=== PATIENT | female | born 1945 | race Caucasian/White ===

== ENCOUNTER → 2018-08-30 13:39 | Outpatient (CLI) | payer MEDICARE, OTHER, SELFPAY ==
--- NOTE | 2018-08-30 | DI.MG.S_ITS ---
UNILATERAL RIGHT DIGITAL DIAGNOSTIC MAMMOGRAM 3D/2D WITH ADDITIONAL VIEWS: 08/30/2018 CLINICAL: Additional evaluation requested from prior study. Comparison is made to exams dated: 07/25/2018 mammogram, 07/20/2016 mammogram, and 05/06/2016 mammogram - [facility]. The tissue of right breast is heterogeneously dense. This may lower the sensitivity of mammography. There is a 1.5 cm irregular spiculated mass in the upper outer right breast at middle depth. IMPRESSION: INCOMPLETE: NEEDS ADDITIONAL IMAGING EVALUATION 1.5 cm irregular spiculated mass in the upper outer right breast at middle depth. A targeted ultrasound of the upper outer right breast and right axilla is recommended. This exam was interpreted at Station ID: [id number]. NOTE: For mammograms, a report in lay terms will be sent to the patient. Approximately 15% of breast malignancies will not be visualized mammographically. In the management of a palpable breast mass, a negative mammogram must not discourage biopsy of a clinically suspicious lesion. Electronically Signed By: Carson Silveira M.D. ecl/:08/30/2018 17:25:19 letter sent: Additional Imaging Needed ACR BI-RADS Category 0: Incomplete [id number]
--- NOTE | 2018-08-30 | DI.US.S_ITS ---
LIMITED ULTRASOUND OF RIGHT BREAST AND AXILLA: 08/30/2018 CLINICAL: Patient returns for additional imaging over a suspected mass in the right breast. Comparison is made to exams dated: 08/30/2018 mammogram - [facility], 07/25/2018 mammogram, and 07/20/2016 mammogram - [facility]. Real-time and Doppler ultrasound of the right breast upper outer quadrant and axilla regions were performed. Hendricks scale images of the real-time examination were reviewed. There is 1.3 cm x 0.9 cm x 0.8 cm irregular mass with a spiculated margin in the right breast at 10 o'clock 7 cm from the nipple. This irregular mass is hypoechoic with an echogenic boundary and posterior acoustic shadowing. This correlates with mammography findings. Color flow imaging demonstrates that there is no vascularity present. Targeted ultrasound of the right axilla demonstrates no right axillary lymphadenopathy. IMPRESSION: SUSPICIOUS OF MALIGNANCY 1) The 1.3 cm x 0.9 cm x 0.8 cm irregular mass in the right breast is at a moderate suspicion for malignancy. An ultrasound guided biopsy is recommended. 2) No ultrasound evidence of right axillary lymphadenopathy. These results and recommendations were discussed with the patient at the time of the exam by the [facility] Radiologist Dr. Quentin Ervin in person. This exam was interpreted at Station ID: [id number]. Electronically Signed By: Carson Silveira M.D. ecl/:08/30/2018 17:28:20 letter sent: Biopsy Required Ultrasound BI-RADS: 4c Suspicious abnormality - moderate concern but not classic for malignancy
== END ==
PROVIDERS: PCP Family Medicine Geriatric Medicine; Visit Provider Family Medicine Geriatric Medicine
DX: R92.8 Other abnormal and inconclusive findings on diagnostic imaging of breast (principal)
CPT/HCPCS: 76642; 77065; G0279

== ENCOUNTER → 2018-09-28 12:07 | Outpatient (CLI) | payer MEDICARE, OTHER, SELFPAY ==
--- NOTE | 2018-09-28 | DI.US.S_ITS ---
ULTRASOUND GUIDED BIOPSY RIGHT BREAST USING VACUUM DEVICE WITH MARKING DEVICE INSERTED AND POST ULTRASOUND IMAGIN09/28/2018 CLINICAL: Right breast mass. PATIENT CONSENT: Risks (minor bleeding, infection, vasovagal reaction and repeat procedure), benefits and alternatives were explained to the patient and written informed consent was obtained. Correlation is made to exams dated: 08/30/2018 ultrasound, 08/30/2018 mammogram - [facility], 07/25/2018 mammogram, 07/20/2016 mammogram, and 05/06/2016 mammogram - [facility]. An ultrasound guided biopsy using real-time ultrasound was performed for the concerning 1.3 cm x 1.5 cm x 1.4 cm indistinct irregular shaped density located in the right breast at 11 o'clock middle depth. This was described on the previous ultrasound report. The skin was prepped in the usual manner. Local anesthetic was administered to the access site. A skin irasema was made in the breast. The abnormality was approached from the lateral aspect. A 13 gauge biopsy needle was placed adjacent to the abnormality under ultrasound guidance. Once the needle was documented to be in the correct location, six specimens were obtained using the Mammotome biopsy system. The patient received additional local anesthetic during the procedure. A Trumark Vision clip was inserted into the biopsy cavity. A skin closure strip and a sterile dressing were applied to the access site. Post procedure ultrasound imaging demonstrates the location marker at the targeted area and partial removal of the abnormality. The specimens were sent to the laboratory for pathological analysis. IMPRESSION: ULTRASOUND GUIDED BIOPSY MALIGNANT Ultrasound guided biopsy of the 1.3 cm x 1.5 cm x 1.4 cm density in the right breast at 11 o'clock middle depth was successful. Please note that due to mammography unit senior quality assurance specialist procedure ongoing a post-biopsy post-marker placement mammogram could not be performed. The patient has agreed to return for a post-procedure mammogram within about 1 week. The Truemark Vision marker was easily seen by US to be in the site of US guided biopsy. Pathology results indicate infiltrating ductal carcinoma. Findings are concordant with mammography and ultrasound. Surgical and oncologic consultation are recommended. This exam was interpreted at Station ID: [id number]. Quentin Martinez M.D. [facility],evette/:10/03/2018 13:49:08
--- NOTE | 2018-09-28 | PATH_ITS ---
[facility] Accession Number: [id number] . 01 Material submitted: . RIGHT BREAST . 01 Clinical history: . MASS 10:00 [id number] . 02 Diagnosis: Right Breast Needle Core Biopsies, 10 o'clock, 7 cm From The Nipple: Infiltrating ductal carcinoma with the following features: 1. Tumor size: Largest single length of tumor is 0.5 cm with multiple cores involved. 2. Tumor grade: [place] grade 2 of 3 (score 5 of 9). Nuclear grade: Low (1 of 3). Mitotic rate: Low (1 of 3). Glandular (tubular) differentiation: Low (score 3 of 3). 3. In situ carcinoma: Not identified. 4. Vascular/lymphatic invasion: Not identified. 5. Receptor studies: Pending, to be reported by addendum. MRV/09/29/2018 . 02 Comment: Case reviewed by Dr Destinee Chand who concurs. These results are telephoned to Dr Ramses Villatoro at 2PM on 09/29/2018. . 02 Electronically signed: . Nitin Liang MD, Pathologist NPI- [id number] . 01 Gross description: . Received one formalin-filled container labeled with the patient's name and designated right breast mass, 10 o'clock, 7 cm FN. The specimen is received with plastic filter in container, sample loose in container. The specimen consists of multiple light yellow-miller portions of tissue, which aggregate to 1.5 x 0.5 x 0.3 cm. The specimen is filtered and entirely submitted in one cassette. Collection date 09/28/2018. Collection time per container is 1:48 p.m. Total fixation time is 12 hours up to 24. ([facility]:[id number]) /[facility] . 02 Pathologist provided ICD-10: C50.411 . 02 CPT . 100247, 835829, [id number], 380707 Performed at: 01 [facility] [address] [place] [address], [place], [place] [id number] MD Meliton Butt MD Phone: [phone] Performed at: 02 [facility] [address] [place], [place] [id number] MD Destinee Rodriguez MD Phone: [phone]
== END ==
PROVIDERS: PCP Family Medicine Geriatric Medicine; Visit Provider Family Medicine Geriatric Medicine
DX: C50.411 Malignant neoplasm of upper-outer quadrant of right female breast (principal)
CPT/HCPCS: 19083; 88305; 88360

== ENCOUNTER → 2018-10-05 14:00 | Outpatient (CLI) | payer MEDICARE, OTHER, SELFPAY ==
--- NOTE | 2018-10-05 | DI.MG.S_ITS ---
UNILATERAL RIGHT DIGITAL DIAGNOSTIC MAMMOGRAM POST-NEEDLE BIOPSY: 10/05/2018 CLINICAL: Post Clip Biopsy from 09/28/2018. Comparison is made to exams dated: 09/28/2018 ultrasound biopsy, 08/30/2018 ultrasound, 08/30/2018 mammogram - [facility], 07/25/2018 mammogram, and 07/20/2016 mammogram - [facility]. The tissue of right breast is heterogeneously dense. This may lower the sensitivity of mammography. There is a marker clip in the appropriate position in the right breast at 11 o'clock middle depth. This marker clip placement is at the biopsy site. IMPRESSION: POST PROCEDURE MAMMOGRAM FOR MARKER PLACEMENT There was a successful marker clip placement in the right breast middle depth. This exam was interpreted at Station ID: [id number]. NOTE: For mammograms, a report in lay terms will be sent to the patient. Approximately 15% of breast malignancies will not be visualized mammographically. In the management of a palpable breast mass, a negative mammogram must not discourage biopsy of a clinically suspicious lesion. Electronically Signed By: Meliton alas/buck:10/06/2018 15:39:14 ACR BI-RADS Category Post-procedure mammogram for marker placement
== END ==
PROVIDERS: PCP Family Medicine Geriatric Medicine; Visit Provider Family Medicine Geriatric Medicine
DX: R92.8 Other abnormal and inconclusive findings on diagnostic imaging of breast (principal)
CPT/HCPCS: 77065